=== PATIENT | female | born 1955 | race Caucasian/White ===

== ENCOUNTER 2017-03-11 08:59 | Day surgery (SDC) | payer OTHER ==
--- NOTE | ~2017-03-11 | EGD ---
EGD REPORT [facility] [address] [place] [address] NAME: SRINIVAS MONDRAGON : [birth year] STATUS : REG [facility]#: [id number] AGE: 61 ADM/REG DATE : 03/11/17 MR#: [id number] REPORT SERV DATE: 03/11/17 DICTATED BY: CHARAN JENKINS DATE: 03/11/17 REPORT STATUS : Draft TRANSCRIBED BY: [facility] DATE: 03/11/17 Endoscopy Center Patient Name: Srinivas Mondragon Date of : 1955 Attending MD: CHARAN JENKINS MD Procedure Date No Time: 03/11/2017 Procedure: Upper GI endoscopy Indications: Suspected esophageal reflux Referring MD: MEY ARRIAGA Medicines: Propofol per Anesthesia Complications: No immediate complications. Procedure: Pre-Anesthesia Assessment: - ASA Grade Assessment: III - A patient with severe systemic disease. After obtaining informed consent, the endoscope was passed under direct vision. Throughout the procedure, the patient's blood pressure, pulse, and oxygen saturations were monitored continuously. The GIF [id number] was introduced through the mouth, and advanced to the third part of duodenum. The upper GI endoscopy was accomplished without difficulty. The patient tolerated the procedure well. Findings: The hypopharynx was normal. Non-severe esophagitis with no bleeding was found at the gastroesophageal junction. There is no endoscopic evidence of Doyle's esophagus in the entire esophagus. A single 3 mm sessile polyp with no bleeding and no stigmata of recent bleeding was found in the cardia. The polyp was removed with a cold biopsy forceps. Resection and retrieval were complete. The exam of the stomach was otherwise normal. The examined duodenum was normal. Impression: - Normal hypopharynx. - Non-severe non-erosive esophagitis. - A single gastric polyp. Resected and retrieved. - Normal examined duodenum. Recommendation: - Await pathology results. Procedure Code(s): --- Professional --- 08941, Esophagogastroduodenoscopy, flexible, transoral; with biopsy, single or multiple EGD REPORT [facility] [address] [place] [address]. [address] NAME: SRINIVAS MONDRAGON : [birth year] STATUS : REG [facility]#: [id number] AGE: 61 ADM/REG DATE : 03/11/17 MR#: [id number] REPORT SERV DATE: 03/11/17 DICTATED BY: CHARAN JENKINS. DATE: 03/11/17 REPORT STATUS : Draft TRANSCRIBED BY: [employer] DATE: 03/11/17 Diagnosis Code(s): --- Professional --- K20.8, Other esophagitis K31.7, Polyp of stomach and duodenum CPT copyright 2013 [employer]. All rights reserved. The codes documented in this report are preliminary and upon angle furnaceman review may be revised to meet current compliance requirements. Charan Jenkins MD CHARAN JENKINS MD 03/11/2017 10:50 AM This report has been signed electronically. Number of Addenda: 0 Note Initiated On: 03/11/2017 10:12 AM Scope Withdrawal Time 0 hours 0 minutes 0 seconds [address] [place] [address]
--- NOTE | ~2017-03-11 | EGD ---
EGD REPORT [facility] [address] [place] [address] NAME: SRINIVAS MONDRAGON : [birth year] STATUS : REG [facility]#: [id number] AGE: 61 ADM/REG DATE : 03/11/17 MR#: [id number] REPORT SERV DATE: 03/11/17 DICTATED BY: CHARAN JENKINS DATE: 03/11/17 REPORT STATUS : Draft [facility]ANSCRIBED BY: [facility] DATE: 03/11/17 Endoscopy Center Patient Name: Srinivas Mondragon Date of : 1955 Attending MD: CHARAN JENKINS MD Procedure Date No Time: 03/11/2017 Procedure: Colonoscopy Indications: Heme positive stool Medicines: Propofol per Anesthesia Complications: No immediate complications. Procedure: After I obtained informed consent, the scope was passed under direct vision. Throughout the procedure, the patient's blood pressure, pulse, and oxygen saturations were monitored continuously. The PCF [id number] was introduced through the anus and advanced to the terminal ileum. The colonoscopy was performed without difficulty. The patient tolerated the procedure well. The quality of the bowel preparation was excellent. Findings: The terminal ileum appeared normal. A few small-mouthed diverticula were found in the sigmoid colon. Internal hemorrhoids were found during retroflexion and were moderate. The exam was otherwise without abnormality. Impression: - The examined portion of the ileum was normal. - Diverticulosis in the sigmoid colon. - Internal hemorrhoids. - The examination was otherwise normal. Recommendation: - Discharge patient to home. - The patient will be observed post-procedure, until all discharge criteria are met. - Repeat colonoscopy in 10 years for screening purposes. - The findings and recommendations were discussed with the patient and their family. - After the procedure, if you experience any pain in abdomen or chest,shortness of breath,fever,chills,blood in stool,rectal bleeding,vomiting of any material,nausea,black stools or weakness or dizziness, GO TO THE EMERGENCY IMMEDIATELY!!!!!!!!! Procedure Code(s): --- Professional --- 72724, Colonoscopy, flexible, proximal to splenic flexure; diagnostic, with or without collection of EGD REPORT [address] [address] NAME: SRINIVAS MONDRAGON : [birth year] STATUS : REG [facility] [place] PAT#: [id number] AGE: 61 ADM/REG DATE : 03/11/17 MR#: [id number] REPORT SERV DATE: 03/11/17 DICTATED BY: CHARAN JENKINS. DATE: 03/11/17 REPORT STATUS : Draft TRANSCRIBED BY: [employer] DATE: 03/11/17 specimen(s) by brushing or washing, with or without colon decompression (separate procedure) Diagnosis Code(s): --- Professional --- K64.8, Other hemorrhoids K57.30, Diverticulosis of large intestine without perforation or abscess without bleeding R19.5, Other fecal abnormalities CPT copyright 2013 [employer]. All rights reserved. The codes documented in this report are preliminary and upon estimator and drafter supervisor review may be revised to meet current compliance requirements. Charan Jenkins MD CHARAN JENKINS MD 03/11/2017 10:53 AM This report has been signed electronically. Number of Addenda: 0 Note Initiated On: 03/11/2017 10:11 AM Scope Withdrawal Time 0 hours 8 minutes 9 seconds [address] [place] [address]
[~2017-03-11 08:59] MED LIST: CLARIT10 PO; FISH-EPA1000 MG PO; GLUCOSAMINEPO; MICARDIS80 PO; PRILO PO; ZIAC10 PO
== END 2017-03-11 23:59 | disposition home health service (06) ==
LOC: DMU 08:59
PROVIDERS: Internal Medicine Gastroenterology
PROC: 0DB68ZX Excision of Stomach, Via Natural or Artificial Opening Endoscopic, Diagnostic (ICD-10-PCS; principal; 2017-03-11 11:00)
PROC: 0DJD8ZZ Inspection of Lower Intestinal Tract, Via Natural or Artificial Opening Endoscopic (ICD-10-PCS; 2017-03-11 11:00)
DX: K64.8 Other hemorrhoids (principal); K21.0 Gastro-esophageal reflux disease with esophagitis; K57.30 Diverticulosis of large intestine without perforation or abscess without bleeding; I10 Essential (primary) hypertension; F41.9 Anxiety disorder, unspecified; F32.9 Major depressive disorder, single episode, unspecified; Z98.890 Other specified postprocedural states
CPT/HCPCS: 88305